=== PATIENT | male | born 1935 | race Caucasian/White ===

== ENCOUNTER 2020-02-10 11:55 | Day surgery (SDC) | payer MEDICARE, OTHER ==
[~2020-02-10 11:55] MED LIST: DIPRIVAN 200 MG/20 ML IV ONE; Ketamine HCl 50 MG/ML ONE
[2020-02-10] MEDS ORDERED: Xylocaine 1% Vial 30 ML PF IJ ONE (11:56)
[2020-02-10] MEDS ORDERED: BUPIVACAINE 0.5% VIAL IJ ONE (11:56)
[2020-02-10] MEDS ORDERED: Depo-Medrol 40 MG/ML IM ONE (11:56)
--- NOTE | 2020-02-10 14:43 | XRAY ---
Indication: Left L3-S1 RFA. Intraoperative fluoroscopy was provided for 26 seconds. 3 digital spot images submitted for interpretation demonstrates posterior needle tips projecting over the expected left L3-S1 nerve roots. Correlate with intraoperative findings/report.
--- NOTE | 2020-02-10 14:58 | XRAY ---
26 seconds fluoroscopy time in surgery for left L3-S1 RFA.
[2020-02-10] MEDS ORDERED: Lactated Ringers 1,000 ML IV ONE (15:11)
== END 2020-02-10 13:30 | disposition home or self-care (01) ==
LOC: SDC-PAIN 11:55
PROVIDERS: ATTEND Psychiatry & Neurology Pain Medicine
DX: M47.816 Spondylosis without myelopathy or radiculopathy, lumbar region (principal); J44.9 Chronic obstructive pulmonary disease, unspecified; I10 Essential (primary) hypertension; I48.91 Unspecified atrial fibrillation; Z79.899 Other long term (current) drug therapy; Z79.01 Long term (current) use of anticoagulants
CPT/HCPCS: 64633; 64635; 64636; 72100; 77002; 99100; J1030; J2001; J2704

== ENCOUNTER 2020-02-17 11:47 | Day surgery (SDC) | payer MEDICARE, OTHER ==
[2020-02-17] MEDS ORDERED: BUPIVACAINE 0.5% VIAL IJ ONE (11:48)
[2020-02-17] MEDS ORDERED: Xylocaine 1% Vial 30 ML PF IJ ONE (11:48)
[2020-02-17] MEDS ORDERED: Depo-Medrol 40 MG/ML IM ONE (11:48)
--- NOTE | 2020-02-17 14:04 | XRAY ---
Indication: Right L3-S1 RFA. Intraoperative fluoroscopy was provided for 35 seconds. 3 digital spot images submitted for interpretation demonstrates posterior needle tips projecting over the expected right L3-S1 nerve roots. Correlate with intraoperative findings/report.
--- NOTE | 2020-02-17 14:06 | XRAY ---
35 seconds of fluoroscopy was used in surgery for a right L3-L4, L4-L5, and L5-S1 RFA.
[2020-02-17] MEDS ORDERED: Lactated Ringers 1,000 ML IV ONE (15:51)
== END 2020-02-17 14:00 | disposition home or self-care (01) ==
LOC: SDC-PAIN 11:47
PROVIDERS: ATTEND Psychiatry & Neurology Pain Medicine
DX: M47.816 Spondylosis without myelopathy or radiculopathy, lumbar region (principal); M47.817 Spondylosis without myelopathy or radiculopathy, lumbosacral region; I10 Essential (primary) hypertension; I48.91 Unspecified atrial fibrillation; Z79.899 Other long term (current) drug therapy; Z79.01 Long term (current) use of anticoagulants
CPT/HCPCS: 64635; 64636; 72100; 77002; 99100; J1030; J2001; J2704

== ENCOUNTER 2021-02-08 12:28 | Day surgery (SDC) | payer MEDICARE, OTHER ==
[2021-02-08] MEDS ORDERED: Depo-Medrol 40 MG/ML IM ONE (12:29)
[2021-02-08] MEDS ORDERED: BUPIVACAINE 0.5% VIAL IJ ONE (12:29)
[2021-02-08] MEDS ORDERED: DIPRIVAN 200 MG/20 ML IV ONE (12:56)
[2021-02-08] MEDS ORDERED: Lactated Ringers 1,000 ML IV ONE (13:18)
--- NOTE | 2021-02-08 14:04 | XRAY ---
Indication: Right ischial bursa injection. Intraoperative fluoroscopy provided for 18 seconds. Single digital spot image submitted for interpretation demonstrates needle tip projecting inferior to the right ischial tuberosity. Small amount of contrast injected for needle tip placement. Correlate with intraoperative findings/report.
--- NOTE | 2021-02-08 14:04 | XRAY ---
18 seconds of fluoroscopy was used in surgery for a right ischial bursa injection.
== END 2021-02-08 13:57 | disposition home or self-care (01) ==
LOC: SDC-PAIN 12:28
PROVIDERS: ATTEND Psychiatry & Neurology Pain Medicine
DX: M70.71 Other bursitis of hip, right hip (principal); Z79.899 Other long term (current) drug therapy
CPT/HCPCS: 20610; 72170; 77002; J1030; J2704; Q9966

== ENCOUNTER 2021-10-25 11:40 | Day surgery (SDC) | payer MEDICARE, OTHER ==
[2021-10-25] MEDS ORDERED: Marcaine Mpf 0.5% Vial 30 Ml IJ ONE (11:41)
[2021-10-25] MEDS ORDERED: Depo-Medrol 40 MG/ML IM ONE (11:41)
[2021-10-25] MEDS ORDERED: DIPRIVAN 200 MG/20 ML IV ONE (14:55)
[2021-10-25] MEDS ORDERED: Lactated Ringers 1,000 ML IV ONE (15:01)
== END 2021-10-25 15:01 | disposition home or self-care (01) ==
LOC: SDC-PAIN 11:40
PROVIDERS: ATTEND Psychiatry & Neurology Pain Medicine
DX: M70.71 Other bursitis of hip, right hip (principal); Z79.899 Other long term (current) drug therapy
CPT/HCPCS: 20610; 77002; J1030; J2704; Q9966

== ENCOUNTER 2021-11-22 14:33 | Day surgery (SDC) | payer MEDICARE, OTHER ==
[2021-11-22] MEDS ORDERED: Lactated Ringers 1,000 ML IV ONE (15:53)
[2021-11-22] MEDS ORDERED: DIPRIVAN 200 MG/20 ML IV ONE (16:11)
--- NOTE | 2021-11-22 18:15 | XRAY ---
Indication: Left L3-S1 RFA. Intraoperative fluoroscopy provided for 18 seconds. 3 digital spot image submitted for interpretation demonstrates posterior needle tips projecting over the expected left L3-S1 nerve roots. Correlate with intraoperative findings/report.
--- NOTE | 2021-11-23 12:52 | XRAY ---
18 seconds of fluoroscopy was used in surgery for a left L3-S1 RFA.
== END 2021-11-22 16:36 | disposition home or self-care (01) ==
LOC: SDC-PAIN 14:33
PROVIDERS: ATTEND Psychiatry & Neurology Pain Medicine
DX: M47.816 Spondylosis without myelopathy or radiculopathy, lumbar region (principal); Z79.899 Other long term (current) drug therapy
CPT/HCPCS: 64635; 64636; 72100; 77002; 99100; J2704

== ENCOUNTER 2021-12-06 14:30 | Day surgery (SDC) | payer MEDICARE, OTHER ==
[2021-12-06] MEDS ORDERED: Depo-Medrol 40 MG/ML IM ONE (14:31)
[2021-12-06] MEDS ORDERED: XYLOCAINE-MPF 1% 5ML SDV IJ ONE (14:31)
[2021-12-06] MEDS ORDERED: Marcaine Mpf 0.5% Vial 30 Ml IJ ONE (14:31)
[2021-12-06] MEDS ORDERED: DIPRIVAN 200 MG/20 ML IV ONE (17:05)
[2021-12-06] MEDS ORDERED: Lactated Ringers 1,000 ML IV ONE (17:53)
--- NOTE | 2021-12-06 19:53 | XRAY ---
Indication: Right L3-S1 RFA. Intraoperative fluoroscopy provided for 46 seconds. 3 digital spot image submitted for interpretation demonstrates posterior needle tips projecting over the expected right L3-S1 nerve roots. Correlate with intraoperative findings/report.
--- NOTE | 2021-12-07 09:21 | XRAY ---
46 seconds of fluoroscopy was used in surgery for a right L3-S1 RFA.
== END 2021-12-06 17:30 | disposition home or self-care (01) ==
LOC: SDC-PAIN 14:30
PROVIDERS: ATTEND Psychiatry & Neurology Pain Medicine
DX: M47.816 Spondylosis without myelopathy or radiculopathy, lumbar region (principal); Z79.899 Other long term (current) drug therapy
CPT/HCPCS: 64635; 64636; 72100; 77002; 99100; J1030; J2704

== ENCOUNTER 2022-03-21 06:37 | Day surgery (SDC) | payer MEDICARE, OTHER ==
[2022-03-21] MEDS ORDERED: Marcaine Mpf 0.5% Vial 30 Ml IJ ONE (06:38)
[2022-03-21] MEDS ORDERED: Depo-Medrol 40 MG/ML IM ONE (06:38)
[2022-03-21] MEDS ORDERED: DIPRIVAN 200 MG/20 ML IV ONE (09:13)
--- NOTE | 2022-03-21 10:46 | XRAY ---
Indication: Right SI joint injection. Intraoperative fluoroscopy provided for 11 seconds. 2 digital spot image submitted for interpretation demonstrates posterior needle tip projecting over the right SI joint. Correlate with intraoperative findings/report.
[2022-03-21] MEDS ORDERED: Lactated Ringers 1,000 ML IV ONE (12:22)
--- NOTE | 2022-03-21 12:57 | XRAY ---
11 seconds fluoroscopy time in surgery for injection of the right SI joint.
== END 2022-03-21 09:40 | disposition home or self-care (01) ==
LOC: SDC-PAIN 06:37
PROVIDERS: ATTEND Psychiatry & Neurology Pain Medicine
DX: M46.1 Sacroiliitis, not elsewhere classified (principal); Z79.899 Other long term (current) drug therapy
CPT/HCPCS: 01992; 27096; 72170; 77002; 99100; G0260; J1030; J2704